=== PATIENT | female | born 1985 | race Caucasian/White ===

== ENCOUNTER → 2017-10-25 | Outpatient (CLI) | payer OTHER ==
[~2017-10-25] MED LIST: ATV1 SL; CHOL100010 PO; MULT-506 PO; SERT50TA PO; TRAM-10 PO
== END | disposition home or self-care (01) ==
LOC: C.PAPS 13:48
PROVIDERS: ATTEND Obstetrics & Gynecology
DX: Z01.419 Encounter for gynecological examination (general) (routine) without abnormal findings (principal)